=== PATIENT | female | born 2005 | race Caucasian/White ===

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

== ENCOUNTER 2023-03-09 07:47 | Outpatient (CLI) | payer BC | END 2023-03-09 07:48 | disposition home or self-care (01) | LOC: SCSMRI 07:47 | DX: G43.411 Hemiplegic migraine, intractable, with status migrainosus (principal) | CPT/HCPCS: 72156 ==